=== PATIENT | male | born 1965 | race Two or more races ===

== ENCOUNTER 2024-06-23 20:23 | Emergency (ER) | payer OTHER ==
[2024-06-23 20:28] VITALS: BP 138/84; PULSE 72; RESP 16; TEMP 97.9; BMI 29.9
[2024-06-23] MEDS ORDERED: LIDOCAINE HCL 1%, 10 MG/ML (20ML VIAL) ONE (21:33)
[2024-06-23] MEDS: LIDOCAINE HCL 1%, 10 MG/ML (50 mL VIAL) INF ONE (21:43)
[2024-06-23] MEDS ORDERED: SULFAMETHOXAZOLE/TRIMETHOPRIM 800MG/160MG D.S. TABLET ONE (22:08)
[2024-06-23] MEDS: SULFAMETHOXAZOLE/TRIMETHOPRIM 800MG/160MG D.S. TABLET PO ONE (22:12)
[2024-06-23] MEDS ORDERED: SULFAMETHOXAZOLE/TRIMETHOPRIM 800MG/160MG D.S. TABLET PO ONE (22:18)
== END 2024-06-23 22:26 | disposition home or self-care (01) ==
LOC: JER 20:23
PROC: 0J943ZZ Drainage of Right Neck Subcutaneous Tissue and Fascia, Percutaneous Approach (ICD-10-PCS; principal; 2024-06-23)
DX: L02.11 Cutaneous abscess of neck (principal)
CPT/HCPCS: 76536; 87070; 87205; 99283-25